=== PATIENT | female | born 1985 | race Hispanic/Latino ===

== ENCOUNTER 2017-03-11 19:09 | Inpatient (IN) | payer OTHER ==
[2017-03-11] MEDS ORDERED: Sodium Chloride 0.9% 1,000 ML IV STA (20:24)
[2017-03-11 20:53] LABS: BASO % 0.3 % (0.0-2.0); EOS % 0.3 % (0.0-4.0); HEMATOCRIT 35.9 % (34.0-47.0); LYMPH # 1.4 K/uL (1.0-4.3); LYMPH % 13.4 % (20.0-40.0); MEAN CORPUSCULAR HEMOGLOBIN 27.3 pg (27.0-31.0); MEAN CORPUSCULAR HGB CONC 32.1 g/dL (33.0-37.0); MEAN PLATELET VOLUME 8.2 fl (7.2-11.7); MONO # 0.7 K/uL (0.0-0.8); MONO % 6.3 % (0.0-10.0); NEUT # 8.5 K/uL (1.8-7.0); NEUT % 79.7 % (50.0-75.0); RED CELL DISTRIBUTION WIDTH 13.5 % (11.5-14.5); WHITE BLOOD COUNT 10.6 K/uL (4.8-10.8)
[2017-03-11 21:05] LABS: ALB/GLOB RATIO 1.4 (1.0-2.1); ALKALINE PHOSPHATASE 55 U/L (38-126); ALT/SGPT 22 U/L (9-52); AST/SGOT 21 U/L (14-36); BILIRUBIN,TOTAL 0.3 mg/dl (0.2-1.3); BLOOD UREA NITROGEN 5 mg/dl (7-17); CALCIUM 9.1 mg/dL (8.4-10.2); CARBON DIOXIDE 22 mmol/L (22-30); CHLORIDE 105 mmol/L (98-107); GFR AFRICAN-AMERICAN > 60; GLUCOSE,RANDOM 102 mg/dL (65-105); LIPASE 78 U/L (23-300); POTASSIUM 3.6 MMOL/L (3.6-5.0); SODIUM 139 mmol/l (132-148); TOTAL PROTEIN 7.3 G/DL (6.3-8.2)
[2017-03-11 21:09] LABS: PARTIAL THROMBOPLASTIN TIME 25.4 Seconds (25.6-37.1)
--- NOTE | 2017-03-11 21:31 | ED PDOC ---
HPI: Abdomen Time Seen by Provider: 03/11/17 19:42 Chief Complaint (Nursing): Abdominal Pain Chief Complaint (Provider): Abdominal Pain History Per: Patient History/Exam Limitations: no limitations Onset/Duration Of Symptoms: Hrs (x5) Current Symptoms Are (Timing): Still Present Additional Complaint(s): Sonia Mcmahon is a 31 year old female who presents to the emergency department with a complaint of sudden onset of sharp abdominal pain radiating to back associated with nausea and urine frequency ongoing since 0400 today while at rest. Denied vomiting, diarrhea, constipation, dysuria, hematuria, vaginal discharge or bleeding. Patient stated she felt well with normal appetite prior to onset of symptoms and took Tylenol with no relief. PMD: none provided Past Medical History Reviewed: Historical Data, Nursing Documentation, Vital Signs Vital Signs: Last Vital Signs Temp 98.9 F 03/12/17 08:05 Pulse 72 03/12/17 08:05 Resp 20 03/12/17 08:05 BP 106/66 03/12/17 08:05 Pulse Ox 98 03/12/17 08:05 - Medical History PMH: Gastritis - Surgical History Surgical History: No Surg Hx, Tonsillectomy - Family History Family History: States: No Known Family Hx - Social History Current smoker - smoking cessation education provided: No Alcohol: Occasional Drugs: Denies - Home Medications Home Medications: Ambulatory Orders Medication Instructions Recorded No Known Home Med 03/12/17 - Allergies Allergies/Adverse Reactions: Allergies Allergy/AdvReac Type Severity Reaction Status Date / Time No Known Allergies Allergy Verified 03/11/17 19:24 Review of Systems ROS Statement: Except As Marked, All Systems Reviewed And Found Negative Gastrointestinal: Positive for: Nausea, Abdominal Pain (sharp), Other (normal appetite). Negative for: Vomiting, Diarrhea, Constipation Genitourinary Female: Positive for: Frequency. Negative for: Vaginal Discharge , Vaginal Bleeding Musculoskeletal: Positive for: Back Pain Physical Exam - Reviewed Nursing Documentation Reviewed: Yes Vital Signs Reviewed: Yes - Physical Exam Appears: Positive for: Non-toxic, In Acute Distress Head Exam: Positive for: ATRAUMATIC, NORMOCEPHALIC Skin: Positive for: Warm, Dry, Pallor Eye Exam: Positive for: EOMI, PERRL ENT: Negative for: Pharyngeal Erythema, Tonsillar Exudate Neck: Positive for: Painless ROM, Supple Cardiovascular/Chest: Positive for: Regular Rate, Rhythm, Chest Non Tender. Negative for: Murmur Respiratory: Positive for: Normal Breath Sounds. Negative for: Rales, Rhonchi Gastrointestinal/Abdominal: Positive for: Soft, Tenderness (suprapubic ttp R>L) . Negative for: Mass, Distended, Guarding, Rebound Back: Positive for: Normal Inspection. Negative for: Decreased ROM Extremity: Positive for: Normal ROM. Negative for: Deformity Neurologic/Psych: Positive for: Alert, Mood/Affect (anxious). Negative for: Motor/Sensory Deficits - Laboratory Results Result Diagrams: 03/12/17 12:19 03/11/17 20:46 - ECG O2 Sat by Pulse Oximetry: 100 (RA) Pulse Ox Interpretation: Normal - Critical Care Total Time (In Min): 30 Documented Critical Care: Time excludes all time spent performint seperately billable procedures Medical Decision Making Medical Decision Making: Initial Impression: Abdominal pain Differential diagnosis: Ovarian cyst; ovarian torsion; appendicitis; kidney stones Initial Plan: * Type and blood * HCG * Urine dipstick * Urine * Toradol 15mg IV * Morphine 2mg IVP * NS 1,000ml IV per 1,000mls/hr * Zofran 4mg IVP * Admit to hospital 2024 Scribe Attestation: Documented by Stacey Whiteside, acting as a scribe for Alanna Hernandez MD. Provider Scribe Attestation: All medical record entries made by the Scribe were at my direction and personally dictated by me. I have reviewed the chart and agree that the record accurately reflects my personal performance of the history, physical exam, medical decision making, and the department course for this patient. I have also personally directed, reviewed, and agree with the discharge instructions and disposition. ED OBSERVATION Date of observation admission: 03/11/17 Time of observation admission: 22:35 - Observation admission statement Patient is being placed in observation because:: pending US - Goals of Observation Goals of observation are:: US results - Progress Note Progress Note: Time: 2245 --CT ABD/pelvis FINDINGS: Lower thorax: There is minimal bibasilar atelectasis. ABDOMEN: Liver: There are no focal liver lesions present. Gallbladder and bile ducts: The gallbladder is contracted but otherwise normal. No calcified stones. No ductal dilation. Pancreas: The pancreas is normal. No ductal dilation. Spleen: The spleen is normal. Adrenals: The adrenal glands are normal. Kidneys and ureters: The kidneys are normal. No hydronephrosis. Stomach and bowel: The stomach is normal. Colonic constipation is present. There is no evidence of intestinal obstruction. No mucosal thickening. Appendix: No findings to suggest acute appendicitis. PELVIS: Bladder: The bladder is normal. Reproductive: There is a small to moderate amount of hemorrhagic fluid in the abdomen and a moderate to large amount of hemorrhagic fluid in the pelvis. There appears to be an area of active bleeding in the low posterior pelvis just posterior to the lower uterine segment and cervix and also posterior and medial to the left adnexa near axial images of series 3, images 133-140. There is a cystic lesion of the left adnexa which measures 3.7 CM and possibly has a faint hemorrhagic rim. Additional 1.8 CM cystic lesion of the right adnexa. If indicated, these can be further evaluated with pelvic sonogram. The uterus is otherwise normal. ABDOMEN and PELVIS: Intraperitoneal space: There is no free intraperitoneal air. No significant fluid collection. Bones/joints: No acute fracture. No dislocation. Soft tissues: Unremarkable. Vasculature: The aorta is normal. No abdominal aortic aneurysm. Lymph nodes: There are multiple nonspecific enlarged lymph nodes. IMPRESSION: 1. There is a small to moderate amount of hemorrhagic fluid in the abdomen and a moderate to large amount of hemorrhagic fluid in the pelvis. There appears to be an area of active bleeding in the low posterior pelvis just posterior to the lower uterine segment and cervix and also posterior and medial to the left adnexa near axial images of series 3, images 133-140. 2. There is a cystic lesion of the left adnexa which measures 3.7 CM and possibly has a faint hemorrhagic rim. Additional 1.8 CM cystic lesion of the right adnexa. If indicated, these can be further evaluated with pelvic sonogram. 3. Additional incidental and/or chronic findings as described 03/12/17 00:02 US FINDINGS Uterus/cervix: Uterus measures 7.6 x 3.5 x 4.0 CM. Endometrial stripe measures 0.6 CM in No myometrial mass. Right ovary: Both adnexal regions demonstrate a large amount of echogenic material presumably representing the hemorrhagic fluid seen on the recent CT. Clinicians are aware of this finding. Right ovary measures 3.5 x 3.1 x 3.4 CM. Right ovary demonstrates a 1.8 CM simple appearing cyst. Normal blood flow. Left ovary: Left ovary is grossly enlarged measuring 6.0 x 2.6 x 4.3 CM. It contains a complex/hemorrhagic cyst measuring 4.5 x 2.9 x 2.1 CM. Free fluid: No free fluid. Bladder: Empty bladder which cannot be evaluated with this probe. IMPRESSION: 1. Left ovary is grossly enlarged measuring 6.0 x 2.6 x 4.3 CM. It contains a complex/hemorrhagic cyst measuring 4.5 x 2.9 x 2.1 CM. 2. Both adnexal regions demonstrate a large amount of echogenic material presumably representing the hemorrhagic fluid seen on the recent CT. Clinicians are aware of this finding. Disposition - Clinical Impression Clinical Impression: Abdominal pain, Ruptured ovarian cyst Counseled Patient/Family Regarding: Studies Performed, Diagnosis - Disposition Disposition Time: 20:25 Condition: GUARDED Patient Signed Over To: Juan Alberto Lazar Handoff Comments: Pending elementary ell teacher consult and final ER disposition
[2017-03-11] MEDS ORDERED: Sodium Chloride 0.9% 50 ML IV ONE (21:36)
[2017-03-11] MEDS ORDERED: Iohexol 300 100 ML IJ ONE (21:36)
[2017-03-11 22:09] LABS: URINE BACTERIA RARE (<OCC); URINE BILIRUBIN NEGATIVE (NEGATIVE); URINE BLOOD NEGATIVE (NEGATIVE); URINE COLOR STRAW (YELLOW); URINE GLUCOSE (UA) NEG (Normal); URINE KETONE TRACE mg/dL (NEGATIVE); URINE LEUKOCYTE ESTERASE MOD Leu/uL (Negative); URINE PROTEIN NEGATIVE (NEGATIVE); URINE UROBILINOGEN 0.2-1.0 mg/dL (0.2-1.0)
[2017-03-11 22:12] LABS: RBC URINE 3 /hpf (0-3)
[2017-03-11 22:13] LABS: WBC URINE 21 /hpf (0-5)
--- NOTE | 2017-03-12 00:02 | US ---
EXAM: US Pelvis, Transvaginal CLINICAL HISTORY: 31 years old, female; Pain; Pelvic pain; Additional info: Right sided pain TECHNIQUE: Real-time transvaginal pelvic ultrasound (complete) with image documentation. Transvaginal imaging was used for better evaluation of the endometrium and adnexa. COMPARISON: No relevant prior studies available. FINDINGS: Uterus/cervix: Uterus measures 7.6 x 3.5 x 4.0 CM. Endometrial stripe measures 0.6 CM in No myometrial mass. Right ovary: Both adnexal regions demonstrate a large amount of echogenic material presumably representing the hemorrhagic fluid seen on the recent CT. Clinicians are aware of this finding. Right ovary measures 3.5 x 3.1 x 3.4 CM. Right ovary demonstrates a 1.8 CM simple appearing cyst. Normal blood flow. Left ovary: Left ovary is grossly enlarged measuring 6.0 x 2.6 x 4.3 CM. It contains a complex/hemorrhagic cyst measuring 4.5 x 2.9 x 2.1 CM. Free fluid: No free fluid. Bladder: Empty bladder which cannot be evaluated with this probe. IMPRESSION: 1. Left ovary is grossly enlarged measuring 6.0 x 2.6 x 4.3 CM. It contains a complex/hemorrhagic cyst measuring 4.5 x 2.9 x 2.1 CM. 2. Both adnexal regions demonstrate a large amount of echogenic material presumably representing the hemorrhagic fluid seen on the recent CT. Clinicians are aware of this finding.
--- NOTE | 2017-03-12 00:10 | ED PDOC ---
- Laboratory Results Result Diagrams: 03/12/17 00:18 03/11/17 20:46 - ECG O2 Sat by Pulse Oximetry: 100 (RA) Medical Decision Making Medical Decision Makin Patient signed out to me pending [employer] consult and admission. Patient is in ED OBS. Scribe Attestation: Documented by Kaci Bosch acting as a scribe for Juan Alberto Lazar MD. Scribe Attestation: All medical record entries made by the Scribe were at my direction and personally dictated by me. I have reviewed the chart and agree that the record accurately reflects my personal performance of the history, physical exam, medical decision making, and the department course for this patient. I have also personally directed, reviewed, and agree with the discharge instructions and disposition. Disposition Counseled Patient/Family Regarding: Studies Performed, Diagnosis, Need For Followup - Clinical Impression Clinical Impression: Abdominal pain, Ruptured ovarian cyst - POA Present On Arrival: None - Disposition Disposition: Admitted as In-Patient Disposition Time: 23:55 Condition: STABLE ED OBSERVATION Date of observation admission: 03/11/17 Time of observation admission: 20:25 - Observation admission statement Patient is being placed in observation because:: Pending consult and admission - Goals of Observation Goals of observation are:: Admission - Progress Note Progress Note: 03/12/17 00:12 Patient resting in room. Vitals stable. 03/12/17 00:15 Dr. Ahmadi in ED. Will evaluate patient. 03/12/17 00:36 Patient will be admitted INPATIENT MED/SURG for pelvic pain, ovarian cyst rule out torsion as per Dr. Ahmadi.
[2017-03-12 00:20] LABS: BASO % 0.4 % (0.0-2.0); EOS % 0.1 % (0.0-4.0); HEMATOCRIT 30.3 % (34.0-47.0); LYMPH # 2.4 K/uL (1.0-4.3); LYMPH % 19.5 % (20.0-40.0); MEAN CELL VOLUME 85.2 fl (81.0-99.0); MEAN CORPUSCULAR HEMOGLOBIN 26.7 pg (27.0-31.0); MEAN CORPUSCULAR HGB CONC 31.3 g/dL (33.0-37.0); MEAN PLATELET VOLUME 7.8 fl (7.2-11.7); MONO # 0.9 K/uL (0.0-0.8); MONO % 7.5 % (0.0-10.0); NEUT # 8.9 K/uL (1.8-7.0); NEUT % 72.5 % (50.0-75.0); RED CELL DISTRIBUTION WIDTH 13.5 % (11.5-14.5); WHITE BLOOD COUNT 12.2 K/uL (4.8-10.8)
--- NOTE | 2017-03-12 01:19 | CP.PCM.CON ---
Addendum entered and electronically signed by Steven Doe MD 03/12/17 05:04: Physical exam: : Vaginal exam; cervix is closed; CMT negative Original Note: <Steven Doe - Last Filed: 03/12/17 01:12> History of Present Illness - History of Present Illness History of Present Illness: 31 yo F with PMHX of cdiff infection, anxiety and reflux presents to the ED with R sided lower abdominal pain. She shares that at 4PM while seated at work, she experienced sharp pain at RLQ. Pain radiates to Mid pelvic and up ipsilateral R rib pain. Pain is exacerbated with movement and deep respirations. She took 1 tylenol and rested but pain did not resolve. She tried another course of Tylenol x2, which did not alleviate her pain. She went to [facility] but was sent to the ED. LMP 02/11/2017 regular STI: negative history Surgery: none Soc: Denies smoking and illicit drugs; shares of 1 drink per day; Meds: Tylenol, Zantac, Adderol Allergies: Advil causes gastric discomfort Review of Systems - Gastrointestinal Gastrointestinal: Abdominal Pain, Nausea - Genitourinary Genitourinary: As Per HPI - Menstruation Menstruation: As Per HPI Past Patient History - Infectious Disease Hx of Infectious Diseases: C.diff - Tetanus Immunizations Tetanus Immunization: Unknown - Past Medical History & Family History Past Medical History?: Yes - Past Social History Smoking Status: Never Smoked Alcohol: < 2 Drinks/Day Drugs: Denies - GASTROINTESTINAL Hx Gastritis: Yes - PSYCHIATRIC Hx Substance Use: No - SURGICAL HISTORY Hx Surgeries: No Hx Tonsillectomy: Yes Meds Allergies/Adverse Reactions: Allergies Allergy/AdvReac Type Severity Reaction Status Date / Time No Known Allergies Allergy Verified 03/11/17 19:24 - Medications Medications: Current Medications Dextrose/Sodium Chloride (Dextrose 5%-0.9% Ns 500 Ml) 1,000 mls @ 100 mls/hr IV .Q10H [facility] Last Admin: 03/12/17 00:37 Dose: 100 mls/hr Tylenol Xantac Adderal Physical Exam - Constitutional Appears: In Acute Distress - Head Exam Head Exam: ATRAUMATIC - Eye Exam Eye Exam: EOMI, Normal appearance, PERRL Pupil Exam: NORMAL ACCOMODATION - Respiratory Exam Respiratory Exam: Clear to Auscultation Bilateral, NORMAL BREATHING PATTERN - Cardiovascular Exam Cardiovascular Exam: REGULAR RHYTHM, +S1, +S2 - GI/Abdominal Exam GI & Abdominal Exam: Guarding, Normal Bowel Sounds, Tenderness - Extremities Exam Extremities exam: Negative for: calf tenderness - Neurological Exam Neurological exam: Alert, Oriented x3 - Psychiatric Exam Psychiatric exam: Normal Affect, Normal Mood - Skin Skin Exam: Dry, Intact, Normal Color, Warm Results - Vital Signs Recent Vital Signs: Last Vital Signs Temp 99.9 F H 03/11/17 19:25 Pulse 83 03/11/17 23:40 Resp 16 03/11/17 23:40 BP 110/66 03/11/17 23:40 Pulse Ox 100 03/12/17 00:37 - Labs Result Diagrams: 03/12/17 00:18 03/11/17 20:46 Assessment & Plan - Assessment and Plan (Free Text) Assessment: 31 F presents with diffuse lower abdominal pain. CT pelvis: reveals hemorrhagic fluid in abdomen and moderate to large amt of hemorrhagic fluid in pelvis. Area of active bleeding in lower posterior pelvis posterior to lower uterine segment and cervix and also posterior and medial to the left adnexa near axial images in series 3 images 133-140. Plan: diagnostic laparoscopy to examine pelvis: hemoperitoneum Ovarian torsion hemorrhagic Cystic rupture [place], PGY 1 <Neftaly Ahmadi - Last Filed: 03/16/17 08:20> Results - Vital Signs Recent Vital Signs: Last Vital Signs Temp 98.9 F 03/12/17 08:05 Pulse 72 03/12/17 08:05 Resp 20 03/12/17 08:05 BP 106/66 03/12/17 08:05 Pulse Ox 100 03/12/17 15:09 - Labs Result Diagrams: 03/12/17 12:19 03/11/17 20:46 Assessment & Plan - Assessment and Plan (Free Text) Plan: OB Hospitalist note: This pt was seen and examined by me. Agree with above note. AMILCAR...see my SDS note for H&P
--- NOTE | 2017-03-12 01:35 | CP.SDSHP ---
Same Day Surgery H & P - History Proposed Procedure: Laparoscopy; possible laparotomy, salpino- oophorectomy...removal of cyst/blood/fluid Pre-Op Diagnosis: Pelvic Pain/ovarian cyst; poss hemorrhagic cyst/torsion - Previous Medical/Surgical History Pain: 8.Very Severe Previous Surgical History: none - Allergies Allergies: Allergies No Known Allergies Allergy (Verified 03/11/17 19:24) - Physical Exam General Appearance: In pain even after Tyelnol/morphine Vital Signs: Vital Signs 03/12/17 03/12/17 00:37 01:08 Pulse Rate 72 O2 Sat by Pulse 100 Oximetry Mental Status: Alert & Oriented x3 Neuro: WNL Heart: WNL Lungs: WNL GI: WNL - {Optional Preform as Required} Abdomen: Other PATTERN PUNCHER: Other : WNL ENT: WNL Other Pertinent Findings: Abd + tenderR>L ; no rebound; slight guarding. Pelvic : no external lesions; Cx closed; no CMT but tender R>L adnexa - Impression Impression: PelvicPain/ovarian cyst/Hemorrhagic cyst possible torsion/ hemorrhage. Anemia - probable blood loss. Condition explained to pt and her presleystacey [place]. Also spoke with her parents by phone. Informed consent obtained. Pt. Evaluated Today:Candidate for Anesthesia & Procedure: Yes - Date & Time Date: 03/12/17 Time: 00:45 Short Stay Discharge - Short Stay Discharge Admitting Diagnosis/Reason for Visit: PELVIC PAIN,OVARIAN CYST,POSSIBLE TORSION/ RUPTURE Disposition: HOME/ ROUTINE
[2017-03-12] MEDS ORDERED: Succinylcholine 200 mg/10 ml Inj IV ONE (01:47)
[2017-03-12] MEDS ORDERED: Propofol 10 mg/ml Inj (20 ML) ONE (01:47)
[2017-03-12] MEDS ORDERED: Lactated Ringer's 1,000 ML IV ONE ×2 (02:00)
[2017-03-12] MEDS ORDERED: Rocuronium 10 mg/ml (5 ml) ONE (02:10)
[2017-03-12] MEDS ORDERED: Sodium Chloride 0.9% 1,000 ML IV ONE ×2 (02:10)
[2017-03-12] MEDS ORDERED: Sodium Chloride 0.9% 100 ML IV ONE (02:12)
[2017-03-12] MEDS ORDERED: Bupivacaine 0.5% Inj(30mL) ONE (02:36)
[2017-03-12] MEDS ORDERED: Ferric Subsulfate Sol(60 mL) ONE (03:22)
[2017-03-12] MEDS ORDERED: Dexamethasone 4 mg/1 ml IVP PRN (03:36)
[2017-03-12] MEDS ORDERED: HYDROmorphone 0.5 mg/0.5 ml ISec IVP PRN (03:36)
[2017-03-12] MEDS: HYDROmorphone 0.5 mg/0.5 ml ISec ONE ×2 (03:38→03:40)
--- NOTE | 2017-03-12 04:19 | PCM.SURG1 ---
Surgeon's Initial Post Op Note - Surgeon's Notes Surgeon: Sharonda Ahmadi DO Philosophy Instructor: Dr Velez; Dr Doe Type of Anesthesia: General Endo Anesthesia Administered By: Dr Napier Pre-Operative Diagnosis: Pelvic pain; ovarian cyst; possible hemoperitoneum Operative Findings: Hemoperitoneum; left ovarian cyst- bleeding Post-Operative Diagnosis: same Operation Performed: Diagnostic laparoscopy; Evacuation of hemoperitonum; Left ovarian cystectomy Specimen/Specimens Removed: left ovarian cyst Estimated Blood Loss: EBL {In ML}: 500 Blood Products Given: N/A Drains Used: No Drains Date of Surgery/Procedure: 03/12/17 Time of Surgery/Procedure: 02:00
--- NOTE | 2017-03-12 07:58 | CP.PCM.CON ---
Past Patient History - Infectious Disease Hx of Infectious Diseases: C.diff - Tetanus Immunizations Tetanus Immunization: Unknown - Past Medical History & Family History Past Medical History?: Yes - Past Social History Smoking Status: Never Smoked Alcohol: < 2 Drinks/Day Drugs: Denies - GASTROINTESTINAL Hx Gastritis: Yes - PSYCHIATRIC Hx Substance Use: No - SURGICAL HISTORY Hx Surgeries: No Hx Tonsillectomy: Yes - ANESTHESIA Hx Anesthesia: No Meds Allergies/Adverse Reactions: Allergies Allergy/AdvReac Type Severity Reaction Status Date / Time No Known Allergies Allergy Verified 03/11/17 19:24 - Medications Medications: Current Medications Acetaminophen (Tylenol 325mg Tab) 650 mg PO Q4H PRN PRN Reason: Pain, Mild (1-3) Hydromorphone HCl (Dilaudid) 0.5 mg IVP Q5M PRN PRN Reason: Pain, moderate (4-7) Dextrose/Sodium Chloride (Dextrose 5%-0.9% Ns 500 Ml) 1,000 mls @ 100 mls/hr IV .Q10H [facility] Last Admin: 03/12/17 00:37 Dose: 100 mls/hr Meperidine HCl (Demerol) 12.5 mg IVP Q5M PRN PRN Reason: Shivering/Rigor Last Admin: 03/12/17 03:45 Dose: 12.5 mg Oxycodone/Acetaminophen (Percocet 5/325 Mg Tab) 1 tab PO Q4H PRN PRN Reason: Pain, moderate (4-7) Stop: 03/15/17 04:39 Results - Vital Signs Recent Vital Signs: Last Vital Signs Temp 98.5 F 03/12/17 06:00 Pulse 78 03/12/17 06:00 Resp 18 03/12/17 06:00 BP 108/63 03/12/17 06:00 Pulse Ox 100 03/12/17 06:34 - Labs Result Diagrams: 03/12/17 00:18 03/11/17 20:46 Assessment & Plan - Assessment and Plan (Free Text) Assessment: Pt examined at beside. She was alert and resting with parents at bedside. She shares that her abdomen is not as tender. Transfusion of 1 unit of PRBC was in process. PE: Abdomen is slightly tender at incision site. Vitals remain stable. Plan to follow up on CBC from 0700. Continue to monitor progression s/p laparoscopic cystectomy of L ovary with hemopariatoneum. Encourage ambulation and resume regular diet.
[2017-03-12 08:05] VITALS: BP 106/66; PULSE 72; RESP 20; TEMP 98.9
[2017-03-12] MEDS: Oxycodone/Acetaminophen 5/325 mg Tab PO PRN ×2 (08:29→12:38)
--- NOTE | 2017-03-12 08:30 | CP.PCM.PN ---
Subjective - Date & Time of Evaluation Date of Evaluation: 03/12/17 Time of Evaluation: 08:00 - Subjective Subjective: She feels better ... no shoulder pain. Just incisional pain arobnd umbilicus and left sided incision. Pain is much less than last night Objective - Vital Signs/Intake and Output Vital Signs (last 24 hours): Temp Pulse Resp BP Pulse Ox 98.9 F 72 20 106/66 98 03/12/17 08:05 03/12/17 08:05 03/12/17 08:05 03/12/17 08:05 03/12/17 08:05 Intake and Output: 03/12/17 03/12/17 06:59 18:59 Intake Total 2050 Output Total 400 275 Balance 1650 -275 - Medications Medications: Current Medications Acetaminophen (Tylenol 325mg Tab) 650 mg PO Q4H PRN PRN Reason: Pain, Mild (1-3) Hydromorphone HCl (Dilaudid) 0.5 mg IVP Q5M PRN PRN Reason: Pain, moderate (4-7) Dextrose/Sodium Chloride (Dextrose 5%-0.9% Ns 500 Ml) 1,000 mls @ 100 mls/hr IV .Q10H [facility] Last Admin: 03/12/17 00:37 Dose: 100 mls/hr Meperidine HCl (Demerol) 12.5 mg IVP Q5M PRN PRN Reason: Shivering/Rigor Last Admin: 03/12/17 03:45 Dose: 12.5 mg Oxycodone/Acetaminophen (Percocet 5/325 Mg Tab) 1 tab PO Q4H PRN PRN Reason: Pain, moderate (4-7) Stop: 03/15/17 04:39 - Labs Labs: PT 10.5 Seconds (9.8-13.1) 03/11/17 20:46 INR 1.0 (0.9-1.2) 03/11/17 20:46 APTT 25.4 Seconds (25.6-37.1) L 03/11/17 20:46 - ENT Exam Additional comments: Lips pale (same as last night) - GI/Abdominal Exam GI & Abdominal Exam: Soft. absent: Distended, Guarding, Rebound - Additional Findings Additional findings: Bhagat removed Assessment and Plan - Assessment and Plan (Free Text) Assessment: S/P laparoscopy/hemoperitoneum/ovarian cystectomy Anemia secondary to blood loss Plan: Finishing up one unit PRBC check CBC and increase diet. Plans to discharge home later today
--- NOTE | 2017-03-12 09:20 | CT ---
PROCEDURE: CT Abdomen and Pelvis with contrast HISTORY: RLQ pain COMPARISON: None. TECHNIQUE: Contrast dose: 100 cc of Omnipaque 300 Radiation dose: Total exam DLP = 413 mGy-cm. This CT exam was performed using one or more of the following dose reduction techniques: Automated exposure control, adjustment of the mA and/or kV according to patient size, and/or use of iterative reconstruction technique. FINDINGS: LOWER THORAX: Unremarkable. LIVER: Unremarkable. No gross lesion or ductal dilatation. GALLBLADDER AND BILE DUCTS: Unremarkable. PANCREAS: Unremarkable. No gross lesion or ductal dilatation. SPLEEN: Unremarkable. ADRENALS: Unremarkable. No mass. KIDNEYS AND URETERS: Unremarkable. No hydronephrosis. No solid mass. VASCULATURE: Unremarkable. No aortic aneurysm. BOWEL: Unremarkable. No obstruction. No gross mural thickening. APPENDIX: Normal appendix. PERITONEUM: Abdominal pelvic ascites is noted, possibly partly hemorrhagic. LYMPH NODES: Unremarkable. No enlarged lymph nodes. BLADDER: Unremarkable. REPRODUCTIVE: Small to moderate amount of hemorrhagic fluid in the pelvis with an area of active bleeding in the low posterior pelvis just posterior to the lower uterine segment and cervix and posterior and medial to the left adnexa. Additional cystic lesion in the left adnexa measuring 3.7 centimeters and a faint hemorrhagic rim. Additional 1.8 centimeters cystic lesion in the right adnexa. BONES: No acute fracture. OTHER FINDINGS: None. IMPRESSION: Small to moderate amount of hemorrhagic fluid in the pelvis with an area of active bleeding in the low posterior pelvis just posterior to the lower uterine segment and cervix and posterior and medial to the left adnexa. Additional cystic lesion in the left adnexa measuring 3.7 centimeters and a faint hemorrhagic rim. Additional 1.8 centimeters cystic lesion in the right adnexa.
[2017-03-12] MEDS ORDERED: Alum-Mag Hydrox-Simethicone Susp (30 mL) PO ONE (12:15)
[2017-03-12 12:22] LABS: HEMATOCRIT 32.9 % (34.0-47.0); MEAN CELL VOLUME 85.3 fl (81.0-99.0); MEAN CORPUSCULAR HEMOGLOBIN 27.3 pg (27.0-31.0); RED CELL DISTRIBUTION WIDTH 13.7 % (11.5-14.5); WHITE BLOOD COUNT 9.5 K/uL (4.8-10.8)
[2017-03-12 15:01] VITALS: O2SAT 100
--- NOTE | 2017-03-12 16:46 | CP.SDSHP ---
Same Day Surgery H & P - Allergies Allergies: Allergies No Known Allergies Allergy (Verified 03/11/17 19:24) - Physical Exam Vital Signs: Vital Signs 03/12/17 15:09 O2 Sat by Pulse 100 Oximetry Short Stay Discharge - Short Stay Discharge Admitting Diagnosis/Reason for Visit: S/P LAPAROSCOPIC CYSTECTOMY OF L OVARY Disposition: HOME/ ROUTINE Referrals: Neftaly Ahmadi DO [Staff Provider] - Instructions: Iron Supplements (By mouth), Oxycodone/Acetaminophen (By mouth), Ovarian Cyst (DC), Laparoscopic Excision of Ovarian Cysts (DC) Additional Instructions (Diet, Activity): follow up with dr Ahmadi in 1 week
--- NOTE | 2017-03-17 08:55 | OP ---
PROCEDURE DATE: 03/12/2017 PREOPERATIVE DIAGNOSES: Pelvic pain, ovarian cyst, possible hemoperitoneum. POSTOPERATIVE DIAGNOSES: 1. Hemoperitoneum. 2. Left ovarian cyst, which was actively bleeding. SURGEON: Neftaly Ahmadi DO SILK SCREEN PRINTING RACKER: Mele Velez MD (Dr. Mele Velez is a board certified ASSIGNMENT DESK ASSISTANT physician who was available for this emergent case. His presence was necessary and vital to facilitate surgery. He assisted in the surgery. He was present from the time of incision to closure of the skin.. SECOND SILK SCREEN PRINTING RACKER: Dr. Doe ANESTHESIOLOGIST: Dr Napier ANESTHESIA: General. SURGERY PERFORMED: Diagnostic laparoscopy, evacuation of hemoperitoneum left ovarian cystectomy. BLOOD LOSS: 500 mL that was both active bleeding/clotted blood in peritoneal cavity/extending to perihepatic area__. DRAINS: One Bhagat catheter. DESCRIPTION OF PROCEDURE: Sonia was brought to the operating table, she was placed in supine position. After successful induction of general anesthesia, she was placed in a lithotomy position. Compression boots were placed on both lower extremities. Catheter was placed to the bladder and draining clear urine and left in place. She was draped and prepped in the usual sterile manner. Prior to Bhagat insertion, she was placed in lithotomy position. She was draped and prepped in the usual sterile manner. Catheter was placed. Attention was first drawn to the perineal area. First, a weighted speculum was placed in the posterior fornix of the vagina and right-angle retractor was placed in the anterior fornix of the vagina to visualize the cervix. Cervix was grasped at 12 o'clock position using a single tooth tenaculum. Gradual dilatation using dilators was performed. The HUMI manipulator was then placed and insufflated with approximately 7 mL of air and left in place. Attention was drawn to the abdominal wall and Marcaine was infiltrated in the umbilicus. Small incision was made. A Veress needle was placed as atraumatically as possible. Intraabdominal cavity was insufflated with CO2 gas until 15 mmHg pressure was obtained. A 5 mm trocar was placed as atraumatically as possible and a 5 mm camera was then placed through the trocar. She was placed in the Trendelenburg position. Noted to be large amount of blood in the pelvic area, abdomen and all the way around the liver. Decision was made to place another 5 mm trocar in the right lower abdomen. First, Marcaine was infiltrated. Incision was made. A 5 mm trocar was placed with visualization using a laparoscope. Thereafter the right fallopian tube followed out to the fibirated end which appeared to be normal. Attention was drawn to the left pelvic area, noted to be active bleeding noted - very small amount from the ovarian cyst which was identified. This was actively bleeding. The suction/sex therapist was used to aspirate blood - all blood clots and brigth red blood were removed. Marcaine was infiltrated on the left abd wall, incision made using a scalpel, and a 11mm trocare placed under laparoscopic visulaization. The pelvic area was cleaned. Decision was made to perform an ovarian cystectomy. Using a grasper and Ligasure, ovarian cystectomy was performed. The speciem was placed into the Endo Catch bag and the ovarian cyst was removed. Hemostasis was being assured using electrocautery. Copious irrigation was done including the blood from the perihepatic area. Both ovaries noted to have good hemostasis. Pelvic cavity was cleaned. No active bleeding noted. Surgicel was placed at the site of ovarian cystectomy. All equipment was removed and accounted for and pneumoperitoneum was reversed. Thereafter on the 11 mm trocar site, 0 Vicryl suture was used to close the fascial layer. Hemostasis assured on all incisions. Dermabond was applied. Band-Aids were placed. Bhagat catheter was left in place. The HUMI manipulator was removed. Cervix was noted to have some bleeding at the tenaculum site and Lugol solution applied until hemostasis assured. All equipment removed accounted for. SPECIMEN: Left ovarian cyst. ADDENDUM: Prior to placement of Veress needle, an OG tube was placed by Dr. Napier . Neftaly Ahmadi DO [facility]ENTER[facility]elardo
== END 2017-03-12 14:03 | disposition home or self-care (01) | DRG 743 ==
LOC: H.ER 19:09 → H.EROBSV 20:25 → H.ERHOLD 03-12 00:34 → OBSVTOIN 03-12 00:34 → H.MEDSURG1 03-12 04:49
PROVIDERS: ADMIT Obstetrics & Gynecology; ATTEND Obstetrics & Gynecology
PROC: 0UB14ZZ Excision of Left Ovary, Percutaneous Endoscopic Approach (ICD-10-PCS; 2017-03-12)
PROC: 30233N1 Transfusion of Nonautologous Red Blood Cells into Peripheral Vein, Percutaneous Approach (ICD-10-PCS; principal; 2017-03-12 01:45)
DX: N83.202 Unspecified ovarian cyst, left side (principal); D50.0 Iron deficiency anemia secondary to blood loss (chronic); K21.9 Gastro-esophageal reflux disease without esophagitis; K29.70 Gastritis, unspecified, without bleeding; F41.9 Anxiety disorder, unspecified